=== PATIENT | male | born 1960 | race Caucasian/White ===

== ENCOUNTER 2018-10-21 05:48 | Day surgery (SDC) | payer BC ==
[2018-10-21] MEDS ORDERED: DIPRIVAN 200 MG/20 ML IV ONE (05:49)
[2018-10-21] MEDS ORDERED: Lactated Ringers 1,000 ML IV SCH (06:30)
--- NOTE | 2018-10-21 07:55 | OP ---
SURGERY DATE/TIME: 10/21/2018701 PREOPERATIVE DIAGNOSIS: Screening colonoscopy. POSTOPERATIVE DIAGNOSIS: Sigmoid colon polyp. PROCEDURE: Colonoscopy. SURGEON: Dante Diaz M.D. ANESTHESIA: MAC by Nino Rouse CRNA. ESTIMATED BLOOD LOSS: Minimal. SPECIMENS: Cold forceps polypectomy from sigmoid colon. DESCRIPTION OF PROCEDURE: After informed written consent was obtained, the patient was taken to the endoscopy suite. He underwent monitored anesthesia and digital rectal exam showed normal sphincter tone and no internal lesions. The scope was inserted into the rectum and sequentially the entire colonic mucosa was traversed. The level of cecum was reached and verified with direct visualization of ileocecal valve. Upon withdrawal there was a small sessile polyp in the sigmoid colon that was removed in its entirety with cold forceps with minimal bleeding following removal. There were scattered diverticula mostly throughout the sigmoid colon. Prior to withdrawal retroflexion showed no internal lesions. The scope was removed and the patient was transferred to the recovery room in good condition. He will have follow up in a week for pathology results.
[2018-10-21 08:11] VITALS: O2SAT 98
[2018-10-21 08:21] VITALS: BP 126/67; PULSE 68
== END 2018-10-21 08:20 | disposition home or self-care (01) ==
LOC: SDC 05:48
PROVIDERS: ATTEND Family Medicine
DX: Z12.11 Encounter for screening for malignant neoplasm of colon (principal); K63.5 Polyp of colon
CPT/HCPCS: 88305; 94250; J2704